=== PATIENT | female | born 1995 | race Caucasian/White ===

== ENCOUNTER 2019-03-29 06:11 | Emergency (ER) | payer MEDICAID ==
[~2019-03-29] VITALS: Ht 157.5 cm; Wt 38.6 kg
[2019-03-29] MEDS ORDERED: NORCO 5-325 TA1 EACH PO (09:15)
== END 2019-03-29 09:21 | disposition home or self-care (01) ==
LOC: ED 06:11 → EDBD 06:12 → ED 06:12
DX: N83.201 Unspecified ovarian cyst, right side (principal); Z87.891 Personal history of nicotine dependence
CPT/HCPCS: 76830; 76856; 80053; 81001; 83690; 84703; 85025; 87491; 87591; 99284-25; J1885

== ENCOUNTER 2022-06-05 09:43 | Emergency (ER) | payer MEDICAID ==
[~2022-06-05] VITALS: Ht 157.5 cm; Wt 39.5 kg
[~2022-06-05 09:43] MED LIST: NORCO 5-325 TA1 EACH PO; ONDANSETRON ODT4 MG PO
== END 2022-06-05 11:07 | disposition home or self-care (01) ==
LOC: ED 09:43
DX: Z77.018 Contact with and (suspected) exposure to other hazardous metals (principal); G43.909 Migraine, unspecified, not intractable, without status migrainosus; Z87.891 Personal history of nicotine dependence
CPT/HCPCS: 36415; 82375; 84703; 85025; 99284

== ENCOUNTER 2023-03-05 19:15 | Emergency (ER) | payer OTHER ==
[~2023-03-05] VITALS: Ht 157.5 cm; Wt 46.5 kg
[2023-03-05] MEDS ORDERED: AMITRIPTYLINE H25 MG PO (19:55)
[2023-03-05 20:17] LABS: BILIRUBIN, URINE NEGATIVE (negative); BLOOD/HGB, URINE NEGATIVE (Negative); KETONE, URINE SMALL (Negative); LEUK ESTERASE, URINE NEGATIVE (negative); NITRITE, URINE NEGATIVE (negative)
[2023-03-05 20:45] LABS: BASOPHILS 0.7 % (0-2); EOSINOPHILS 1.1 % (0-6); HEMATOCRIT 41.1 % (35.0-50.0); HEMOGLOBIN 13.6 g/dL (12.0-18.0); LYMPHOCYTES 21.1 % (24-44); MCH 28.9 (27-36); MCV 87.5 fl (81-99); MONOCYTES 5.9 % (0-12); NEUTROPHILS 71.2 % (39-80); PLATELET COUNT 186 K/uL (140-440); RDW 13.7 (10.5-15.0)
[2023-03-05 21:02] LABS: ALBUMIN 4.3 g/dL (3.4-5.0); ALBUMIN/GLOBULIN RATIO 1.65 (1.1-2.4); ANION GAP 9.3 (7-21); BILIRUBIN, TOTAL 0.8 ng/dL (0.2-1.0); BUN/CREATININE RATIO 13.69 (6.0-28.6); CALCIUM 9.5 mg/dL (8.5-10.1); CREATININE, SERUM 0.73 mg/dL (0.55-1.02); POTASSIUM 3.3 mmol/L (3.5-5.1); PROTEIN, TOTAL 6.9 g/dL (6.4-8.2)
[2023-03-05] MEDS ORDERED: TRAMADOL HCL50 MG PO (23:01)
[2023-03-05 23:17] VITALS: BP 115/74
== END 2023-03-05 23:15 | disposition home or self-care (01) ==
LOC: ED 19:15
PROVIDERS: Family Medicine
DX: N83.201 Unspecified ovarian cyst, right side (principal); N83.202 Unspecified ovarian cyst, left side; Z88.8 Allergy status to other drugs, medicaments and biological substances; Z87.891 Personal history of nicotine dependence; Z79.899 Other long term (current) drug therapy
CPT/HCPCS: 36415; 76830; 76856; 80053; 81003; 84703; 85025; 99284-25; A9270